=== PATIENT | male | born 1975 | race Caucasian/White ===

== ENCOUNTER 2017-08-03 19:27 | Emergency (ER) | payer SELFPAY ==
[2017-08-03] MEDS ORDERED: LIDOCAINE 1% INJ (10 MG/ML) 10 ML MDV INJ ONE (20:17)
[2017-08-03] MEDS ORDERED: SULFAMETHOXAZOLE/TRIMETHOPRIM 800-160 MG TABLET PO ONE (20:18)
[2017-08-03] MEDS ORDERED: CEPHALEXIN 500 MG CAPSULE PO ONE (20:19)
[2017-08-03 20:39] VITALS: BP 133/82
--- NOTE | 2017-08-03 20:40 | ER Document Report ---
ED Skin Rash/Insect Bite/Abscs - General Mode of Arrival: Ambulatory Information source: Patient TRAVEL OUTSIDE OF THE [place] IN LAST 30 DAYS: No <MEHRDAD MORE - Last Filed: 08/10/17 13:56> <RICHY GUTIERREZ - Last Filed: 08/11/17 07:56> - General Chief Complaint: Abscess Stated Complaint: ARM SWELLING Time Seen by Provider: 08/03/17 20:09 Notes: Patient is a 41 year old male that presents to the emergency department today with complaints of a left forearm abscess. Patient states he "tried to fix it himself yesterday" by going to "[employer] and buying an exacto knife and cutting it open". Patient states he was able to get purulent discharge out but he feels like there is still more left inside the area. Patient admits to a history of IV drug abuse in the remote past but states he has "been clean" for several years. (MEHRDAD MORE) - Related Data Allergies/Adverse Reactions: No Known Allergies Allergy (Verified 08/03/17 19:28) Past Medical History - General Information source: Patient - Social History Smoking Status: Current Every Day Smoker Cigarette use (# per day): Yes Frequency of alcohol use: None Drug Abuse: Other - none now, previous hx of IV drug usage Lives with: Family Family History: Reviewed & Not Pertinent Patient has suicidal ideation: No Patient has homicidal ideation: No - Medical History Medical History: Negative Renal/ Medical History: Denies: Hx Peritoneal Dialysis Surgical Hx: Negative <MEHRDAD MORE - Last Filed: 08/10/17 13:56> Review of Systems - Review of Systems Constitutional: No symptoms reported EENT: No symptoms reported Cardiovascular: No symptoms reported Respiratory: No symptoms reported Gastrointestinal: No symptoms reported Genitourinary: No symptoms reported Male Genitourinary: No symptoms reported Musculoskeletal: No symptoms reported Skin: See HPI, Other - left forearm abscess Hematologic/Lymphatic: No symptoms reported Neurological/Psychological: No symptoms reported -: Yes All other systems reviewed and negative <MEHRDAD MORE - Last Filed: 08/10/17 13:56> Physical Exam <MEHRDAD MORE - Last Filed: 08/10/17 13:56> <RICHY GUTIERREZ - Last Filed: 08/11/17 07:56> - Vital signs Vitals: Temp Pulse Resp BP Pulse Ox 98.1 F 96 16 133/82 H 99 08/03/17 19:31 08/03/17 19:31 08/03/17 19:31 08/03/17 19:31 08/03/17 19:31 - Notes Notes: Physical Exam: General: Alert, appears well. HEENT: Normocephalic. Atraumatic. PERRL. Extraocular movements intact. Oropharynx clear. Neck: Supple. Non-tender. Respiratory: No respiratory distress. Clear and equal breath sounds bilaterally. Cardiovascular: Regular rate and rhythm. Abdominal: Normal Inspection. Non-tender. No distension. Normal Bowel Sounds. Back: Non-tender. No deformity or step off. Extremities: Moves all four extremities. Upper extremities: Normal inspection. Normal ROM. Lower extremities: Normal inspection. No edema. Normal ROM. Neurological: Normal cognition. AAOx4. Normal speech. Psychological: Normal affect. Normal Mood. Skin: Left forearm erythema, warmth, induration, consistent with abscess. Small central opening with purulent drainage. (MEHRDAD MORE) Course <MEHRDAD MORE - Last Filed: 08/10/17 13:56> <RICHY GUTIERREZ - Last Filed: 08/11/17 07:56> - Re-evaluation Re-evalutation: 08/03/17 20:41 Patient well-appearing in no acute distress but does have signs of cellulitis on his left upper extremity with abscess. Incision and drainage performed without complication. Will place patient on Bactrim and Keflex for cellulitis overlying abscess. Patient has normal vitals nontoxic-appearing. Discussed with patient if erythema is spreading passes testing lines in the next 48 hours he needs to come back for reevaluation otherwise continue taking antibiotics to resolution of infection. (RICHY GUTIERREZ) - Vital Signs Vital signs: Temp Pulse Resp BP Pulse Ox 98.1 F 96 16 133/82 H 99 08/03/17 19:31 08/03/17 19:31 08/03/17 19:31 08/03/17 19:31 08/03/17 19:31 Procedures - Incision and Drainage Right Distal Arm Type: Simple Anesthetic type: 1% Lidocaine Blade size: 11 I&D procedure: Betadine prep applied Incision Method: Incision made by scalpel Amount/type of drainage: 3cc bloody purulent drainage bloody purulent drainage <RICHY GUTIERREZ - Last Filed: 08/11/17 07:56> Discharge <MEHRDAD MORE - Last Filed: 08/10/17 13:56> <RICHY GUTIERREZ - Last Filed: 08/11/17 07:56> - Discharge Clinical Impression: Abscess Cellulitis Qualifiers: Site of cellulitis: extremity Site of cellulitis of extremity: upper extremity Laterality: left Qualified Code(s): L03.114 - Cellulitis of left upper limb Condition: Stable Disposition: HOME, SELF-CARE Instructions: Abscess ([facility]), MRSA Cellulitis ([facility]), Post Incision and Drainage Additional Instructions: Per discussion, if erythema spreads past the tattoo lines we discussed on your arm over the next 48 hours or he begin to develop fevers chills please return immediately to the emergency department for reevaluation. Please take all medications as prescribed Prescriptions: Cephalexin Monohydrate [Keflex 500 mg Capsule] 500 mg PO Q6H 10 Days #40 capsule Sulfamethoxazole/Trimethoprim [Bactrim Ds Tablet] 1 each PO BID 10 Days #20 tablet Scribe Attestation: 08/11/17 07:56 I personally performed the services described in the documentation, reviewed and edited the documentation which was dictated to the scribe in my presence, and it accurately records my words and actions. (RICHY GUTIERREZ) Scribe Documentation - Scribe Written by Prabhjote:: Marcelo Le, 08/10/2017 acting as scribe for :: Tony <MEHRDAD MORE - Last Filed: 08/10/17 13:56>
== END 2017-08-03 21:12 | disposition home or self-care (01) ==
LOC: ER 19:27
DX: L02.413 Cutaneous abscess of right upper limb (principal); L03.113 Cellulitis of right upper limb; F17.210 Nicotine dependence, cigarettes, uncomplicated
CPT/HCPCS: 99283

== ENCOUNTER 2017-08-21 09:58 | Emergency (ER) | payer SELFPAY ==
[2017-08-21 10:04] VITALS: BP 141/78
[2017-08-21] MEDS ORDERED: KETOROLAC TROMETHAMINE INJ/PF 30 MG/1 ML SDV IM ONE (10:46)
--- NOTE | 2017-08-21 10:48 | ER Document Report ---
ED Neck/Back Problem - General Chief Complaint: Low Back Pain Stated Complaint: BACK PAIN Time Seen by Provider: 08/21/17 10:15 Mode of Arrival: Ambulatory Information source: Patient TRAVEL OUTSIDE OF THE [place] IN LAST 30 DAYS: No - HPI Patient complains to provider of: Pain, Lower back Notes: Patient is here with complaints of low back pain for the last 2 months. The pain mainly on the left side and radiates into his left hip. He denies any traumatic injuries or falls. No fever. No abdominal pain. No nausea, vomiting , diarrhea. No dysuria or hematuria. No rash. He is not on blood thinning medications. He denies IV drug use. Pain is worse with movement, nothing seems to be making it better. States that he recently moved down here a few months ago and does not have a primary care doctor at this time. He is on no daily medications. He denies any allergies. He denies any other complaints at this time. No chest pain or shortness of breath. - Related Data Allergies/Adverse Reactions: No Known Allergies Allergy (Verified 08/03/17 19:28) Past Medical History - Social History Smoking Status: Current Every Day Smoker Family History: Reviewed & Not Pertinent Renal/ Medical History: Denies: Hx Peritoneal Dialysis Review of Systems - Review of Systems -: Yes All other systems reviewed and negative Physical Exam - Vital signs Vitals: Temp Pulse Resp BP Pulse Ox 98.3 F 84 16 141/78 H 99 08/21/17 10:03 08/21/17 10:03 08/21/17 10:03 08/21/17 10:03 08/21/17 10:03 - Notes Notes: GENERAL: alert, cooperative, nontoxic, no distress. HEAD: normocephalic, atraumatic EYES: conjunctiva pink without discharge, no external redness or swelling. EARS: no external swelling, no external redness NOSE: atraumatic, no external swelling MOUTH/THROAT: mucous membranes moist and pink, posterior pharynx without erythema, swelling, exudate. No trismus or drooling. NECK: soft, supple, full range of motion, no meningismus. CHEST: no distress, lungs clear and equal throughout. No wheezing, rales, rhonchi. CARDIAC: regular rate and rhythm, no murmur, normal capillary refill, normal pulses. No peripheral edema noted. ABDOMEN: soft, nontender, no pusatile mass. BACK: No CVA tenderness. Tenderness to the left lumbar paraspinal muscles. No midline tenderness step-offs or crepitus. EXTREMITIES: full range of motion of all extremities. No redness, no swelling. NEURO: alert and oriented A&O x 3, no focal deficits, full range of motion of all extremities. 5 out of 5 flexion and extension of the lower extremities bilaterally. Patellar and Achilles deep tendon reflexes are +2 bilaterally. Normal sensation with no saddle anesthesia. Patient can dorsiflex the great toes bilaterally. PYSCH: appropriate mood, affect. Patient is cooperative. SKIN: pink, warm, dry, no rash. Course - Re-evaluation Re-evalutation: 08/21/17 11:00 Patient is nontoxic appearing with stable vitals. Here with complaints of low back pain for the last few months. Pain is worse with movement. No trauma or injury. No blood thinners. No IV drug use. No sign or risk of cauda equina, epidural abscess/bleed, discitis, osteomyelitis, pyelonephritis, AAA. He is a benign exam at this time with no deficits. X-rays the lumbar spine show no acute abnormality. The patient was given a shot of Toradol in the emergency department. He will be discharged home with a prescription for Voltaren and Zanaflex. He will given referrals for primary care to get established with due to his chronic low back pain. Follow-up sooner for worsening pain, fever, trouble controlling bowels or bladder, fever, or for any further concerns. The patient is noted to have elevated blood pressure during today's emergency department visit. The patient was informed of this finding. The patient was instructed that this may be related to pre-hypertension and requires further evaluation with a primary care provider. The patient has no hypertensive symptoms at this time. The patient's emergency department workup and current diagnosis were explained to the patient and or family. Follow-up instructions were provided. Medications if prescribed were discussed. Instructions for when to return to the emergency department including specific worrisome symptoms were discussed with the patient and/or family. - Vital Signs Vital signs: Temp Pulse Resp BP Pulse Ox 98.3 F 84 16 141/78 H 99 08/21/17 10:03 08/21/17 10:03 08/21/17 10:03 08/21/17 10:03 08/21/17 10:03 - Diagnostic Test Radiology reviewed: Image reviewed, Reports reviewed - Negative lumbar spine Discharge - Discharge Clinical Impression: Low back pain Qualifiers: Chronicity: acute Back pain laterality: left Sciatica presence: without sciatica Qualified Code(s): M54.5 - Low back pain Condition: Stable Disposition: HOME, SELF-CARE Instructions: Low Back Pain ([facility]), Family Physicians / Practices Additional Instructions: Take medications as prescribed. Follow-up with primary care at the next available appointment. Follow-up sooner for worsening pain, fever, numbness, tingling, weakness, bowel or bladder dysfunction, or for any further concerns. Your blood pressure was elevated during today's visit. Have this rechecked with your doctor. Prescriptions: Diclofenac Sodium [Voltaren 50 Mg Tablet.] 50 mg PO BID #20 tablet. Tizanidine HCl [Zanaflex 4 Mg Tablet] 4 mg PO BID PRN #10 tablet PRN Reason: Forms: Elevated Blood Pressure, Smoking Cessation Education Referrals: [facility] [Provider Group] - Follow up as needed
--- NOTE | 2017-08-21 10:50 | RADIOLOGY REPORT (SQ) ---
EXAM DESCRIPTION: L SPINE WHOLE COMPLETED DATE/TIME: 08/21/2017 10:34 am REASON FOR STUDY: low back pain COMPARISON: None. NUMBER OF VIEWS: Five views including obliques. TECHNIQUE: AP, lateral, oblique, and sacral radiographic images acquired of the lumbar spine. LIMITATIONS: None. FINDINGS: MINERALIZATION: Normal. SEGMENTATION: Normal. No transitional anatomy. ALIGNMENT: Normal. VERTEBRAE: Maintained height. No fracture or worrisome bone lesion. DISCS: Preserved height. No significant osteophytes or end plate irregularity. POSTERIOR ELEMENTS: Pedicles and facets are intact. No pars defect or posterior arch defects. HARDWARE: None in the spine. PARASPINAL SOFT TISSUES: Normal. PELVIS: Intact as visualized. No fractures or worrisome bone lesions. SI joints intact. OTHER: No other significant finding. IMPRESSION: NORMAL 5 VIEW LUMBAR SPINE. TECHNICAL DOCUMENTATION: JOB ID: [id number] [facility]- All Rights Reserved Reading location - IP/workstation name: [email or web address]
== END 2017-08-21 11:04 | disposition home or self-care (01) ==
LOC: ER 09:58
DX: M54.5 Low back pain (principal); M25.552 Pain in left hip; F17.200 Nicotine dependence, unspecified, uncomplicated
CPT/HCPCS: 99283; 96372; 72110; J1885